=== PATIENT | female | born 1935 | race Caucasian/White ===

== ENCOUNTER 2022-04-20 03:23 | Inpatient (IN) | payer MEDICARE, OTHER ==
[~2022-04-20] VITALS: Ht 165.1 cm; Wt 65.7 kg
[~2022-04-20 03:23] MED LIST: ACET-3207 PO; APIX2.5T PO; ATOR40TA28 PO; CEFX2I IV; CHOL25TA4 PO; DOCU-385 PO; MAGN-169 PO; MAGN400T7 PO; MELA5TAB40 PO; OS500 PO; OXYC1TAB6 PO; PANT-31 PO; RISP0.5T39 PO; SENN8.6T20 PO; TRAZ-184 PO
[2022-04-20] MEDS ORDERED: 0.9% SODIUM CHLORIDE 10 ML SYRINGE IVP PRN (03:30)
[2022-04-20] MEDS ORDERED: ACETAMINOPHEN 1000 MG/ISO-OSM 100 ML IV ONE (03:45)
[2022-04-20] MEDS ORDERED: SODIUM CHLORIDE 0.9% 2,450 ML IV ONE (03:45)
[2022-04-20 03:55] LABS: COVID AG,FIA SOURCE NASAL SWAB
[2022-04-20 03:58] LABS: BASOPHILS % (AUTO) 0.3 % (0.0-2.0); EOSINOPHILS % (AUTO) 0.1 % (1.0-6.0); HEMATOCRIT 37.7 % (36-46); HEMOGLOBIN 12.2 g/dL (12.0-16.0); LYMPHOCYTES # (AUTO) 0.2 K/uL (1.0-4.8); LYMPHOCYTES % (AUTO) 1.5 % (22.0-44.0); MEAN CORPUSCULAR HEMOGLOBIN 26.8 pg (26.0-34.0); MEAN CORPUSCULAR HGB CONC 32.3 G/dL (31.0-37.0); MEAN CORPUSCULAR VOLUME 83 fL (80-100); MONOCYTES % (AUTO) 0.2 % (2.0-9.0); NEUTROPHILS # (AUTO) 13.1 K/uL (1.8-7.7); PLATELET COUNT (AUTO) 363 K/uL (150-450); RED BLOOD CELL COUNT(AUTO) 4.54 MIL/uL (4.00-5.20); RED CELL DISTRIBUTION WIDTH 15.9 % (11.5-14.5)
[2022-04-20 04:00] LABS: APPEARANCE,URINE TURBID (CLEAR); BILIRUBIN,URINE NEGATIVE (NEGATIVE); GLUCOSE, URINE (UA) NEGATIVE (NEGATIVE); KETONES,URINE NEGATIVE (NEGATIVE); LEUKOCYTE ESTERASE ,URINE LARGE (NEGATIVE); NITRATE,URINE NEGATIVE (NEGATIVE); OCCULT BLOOD,URINE LARGE (NEGATIVE); PROTEIN,URINE 300-600,SEE CONFIRM mg/dL (NEGATIVE); SPECIFIC GRAVITIY, URINE 1.009 (1.003-1.030); UROBILINOGEN,URINE <=1.0 mg/dL (<=1.0)
[2022-04-20 04:09] LABS: ANION GAP 10 mmol/L (8-16); CALCIUM, TOTAL 9.7 mg/dL (8.8-10.5); CARBON DIOXIDE 27 mmol/L (22-29); CHLORIDE 102 mmol/L (98-107); CREATININE 0.97 mg/dL (0.60-1.30); GLUCOSE,RANDOM 106 mg/dL (70-110); POTASSIUM 3.8 mmol/L (3.5-5.1); SODIUM SERUM 139 mmol/L (136-145); UREA NITROGEN, BLOOD 34 mg/dL (7-18)
[2022-04-20 04:10] LABS: GLOMERULAR FILTR. RATE CALC 55 mL/min (>60)
[2022-04-20 04:16] LABS: ALANINE AMINOTRANSFERASE 15 U/L (12-78); ALKALINE PHOSPHATASE 184 U/L (46-116); ASPARTATE AMINOTRANSFERASE 25 U/L (15-37); CREATINE KINASE, TOTAL ONLY 35 U/L (26-192)
[2022-04-20 04:17] LABS: INFLUENZA TYPE A NEGATIVE FOR TYPE A (NEGATIVE); INFLUENZA TYPE B NEGATIVE FOR TYPE B (NEGATIVE)
[2022-04-20 04:19] LABS: D-DIMER 5.03 mg/L FEU (0.00-0.50); INR 1.1 (0.9-1.1); PROTHROMBIN TIME 12.1 SEC (9.4-11.6)
[2022-04-20 04:25] LABS: SULFOSALICYLIC ACID,URINE 3+ (Negative)
[2022-04-20 04:26] LABS: BACTERIA,URINE Many /HPF (None Seen); RBC,URINE 26-50 /HPF (0-2); WBC,URINE 51-100 /HPF (0-5)
[2022-04-20 04:27] LABS: AMORPHOUS SEDIMENT,UR Moderate /LPF (None Seen); SQUAMOUS EPITHELIAL CELL,UR Moderate /LPF (None Seen)
[2022-04-20] MEDS ORDERED: AZITHROMYCIN 500 MG/NS 250 ML IV ONE (04:30)
[2022-04-20] MEDS ORDERED: CefTRIAXone 1 GM/DEXTROSE 50 ML IV ONE (04:30)
[2022-04-20 04:31] LABS: B-TYPE NATRIURETIC PEPTIDE 236 pg/mL (0-100)
[2022-04-20 04:34] LABS: NEUTROPHILS % (AUTO) 97.9 % (40.0-70.0)
[2022-04-20] MEDS ORDERED: ONDANSETRON HCL 4 MG/2 ML VIAL IVP PRN (04:45)
[2022-04-20] MEDS ORDERED: SODIUM CHLORIDE 0.9% 100 ML ONE ×2 (05:22→13:28)
[2022-04-20] MEDS: RINGERS SOLUTION,LACTATED 1,000 ML IV SCH ×2 (05:22→18:47)
[2022-04-20] MEDS ORDERED: IOHEXOL 350 MG/ML 100 ML VIAL ONE ×2 (05:22→13:28)
[2022-04-20] MEDS ORDERED: NOREPINEPHRINE 8 MG/D5%-WATER 250 ML IV PRN ×2 (05:30→05:45)
[2022-04-20] MEDS ORDERED: POTASSIUM CHLORIDE 10% 40 MEQ/30 ML LIQUID UDCUP PO ONE (05:45)
[2022-04-20] MEDS ORDERED: DIGOXIN 250 MCG/ML 2 ML AMP IVP ONE (05:45)
[2022-04-20 06:06] LABS: ABG HCO3 19.6 mmol/L (22.0-26.0); ABG PCO2 36 mmHg (35-45); ABG PH 7.342 (7.35-7.450); PO2, ARTERIAL BG 258.6 mmHg (71.0-79.0); SITE, BLOOD GAS LFT RADIAL; SOURCE, BLOOD GAS ARTERIAL
[2022-04-20 06:07] LABS: ABG BASE EXCESS -6.6 mmol/L (-2.0-3.0); ABG CARBOXYHEMOGLOBIN 0.1 % (0.0-1.5); ABG METHEMOGLOBIN 0.3 % (0.0-1.5); ABG OXYGEN CONTENT 15.3 mL/dL (15.0-23.0); ABG OXYGEN SATURATION 99.6 % (95.0-98.0); ABG TOTAL HEMOGLOBIN 10.5 G/dL (12.0-18.0)
[2022-04-20 06:08] LABS: ABG A-A DIFF O2 416.3 mmHg (10-20.0); O2 DEVICE,BLOOD GAS SIMPLE MASK (ROOM AIR)
[2022-04-20 06:09] LABS: ABG OXYHEMOGLOBIN 99.2 % (94.0-100.0)
[2022-04-20] MEDS ORDERED: AMIODARONE HCL 360 MG in DEXTROSE 5%-WATER 242.8 ML IV ONE (07:30)
[2022-04-20] MEDS ORDERED: HEPARIN SODIUM,PORCINE 5,000 UNITS/ML VIAL IVP ONE (07:30)
[2022-04-20] MEDS: POTASSIUM CHL 10 MEQ/WATER 50 ML IV SCH ×2 (07:30→08:30)
[2022-04-20] MEDS ORDERED: AMIODARONE HCL 150 MG in DEXTROSE 5%-WATER 97 ML IV ONE (07:30)
[2022-04-20] MEDS ORDERED: HEPARIN SODIUM,PORCINE 5,000 UNITS/ML VIAL SQ SCH (08:00)
[2022-04-20] MEDS ORDERED: DEXTROSE 5%-WATER 100 ML IV ONE (08:09)
[2022-04-20] MEDS ORDERED: AMIODARONE HCL 50 MG/ML 3 ML VIAL ONE (08:10)
[2022-04-20] MEDS: HEPARIN SODIUM 25000 UNITS/D5W 250 ML IV PRN (09:08)
[2022-04-20] MEDS ORDERED: ACET-2247 PO (11:06)
[2022-04-20] MEDS ORDERED: AMIODARONE HCL 540 MG in DEXTROSE 5%-WATER 239.2 ML IV ONE (13:30)
[2022-04-20] MEDS: ACETAMINOPHEN 325 MG TABLET PO PRN (16:18)
[2022-04-20] MEDS: PHENYLEPHRINE 200 MG/D5%-WATER 250 ML IV PRN (21:46)
[2022-04-21] MEDS ORDERED: CefTRIAXone 1 GM/DEXTROSE 50 ML IV SCH (05:00)
[2022-04-21 05:40] LABS: HEMATOCRIT 35.9 % (36-46); HEMOGLOBIN 11.4 g/dL (12.0-16.0); MEAN CORPUSCULAR HEMOGLOBIN 26.3 pg (26.0-34.0); MEAN CORPUSCULAR HGB CONC 31.8 G/dL (31.0-37.0); MEAN CORPUSCULAR VOLUME 83 fL (80-100); PLATELET COUNT (AUTO) 309 K/uL (150-450); RED BLOOD CELL COUNT(AUTO) 4.33 MIL/uL (4.00-5.20); RED CELL DISTRIBUTION WIDTH 16.5 % (11.5-14.5)
[2022-04-21 05:58] LABS: CALCIUM, TOTAL 8.9 mg/dL (8.8-10.5); CREATININE 0.98 mg/dL (0.60-1.30); MAGNESIUM 1.7 mg/dL (1.80-2.40); POTASSIUM 3.8 mmol/L (3.5-5.1)
[2022-04-21] MEDS ORDERED: *CLINICAL-CEFEPIME DOSING CLINICAL ONE (06:15)
[2022-04-21 06:24] LABS: BAND NEUTROPHILS % (MANUAL) 20 % (0-5); EOSINOPHILS % (MANUAL) 1 % (1-6); LYMPHOCYTES % (MANUAL) 2 % (22-44); METAMYELOCYTES % 3 % (0-0); MONOCYTES % (MANUAL) 5 % (2-9); SEGMENTED NEUTROPHILS % 69 % (40-70)
[2022-04-21] MEDS ORDERED: VASOPRESSIN 40 UNITS in DEXTROSE 5%-WATER 98 ML IV PRN (06:30)
[2022-04-21] MEDS: HEPARIN SODIUM,PORCINE 5,000 UNITS/ML VIAL IVP PRN (06:34)
[2022-04-21] MEDS: CEFEPIME HCL 2 GM in DEXTROSE 5%-WATER 50 ML IV SCH (06:46)
[2022-04-21 07:39] LABS: LACTIC ACID 4.7 mmol/L (0.4-2.0)
[2022-04-21] MEDS: RINGERS SOLUTION,LACTATED 1,000 ML IV SCH ×2 (07:57→20:55)
[2022-04-21] MEDS: AMIODARONE HCL 750 MG in DEXTROSE 5%-WATER 485 ML IV SCH (08:07)
[2022-04-21] MEDS: AZITHROMYCIN 500 MG/NS 250 ML IV SCH (08:28)
[2022-04-21 11:57] LABS: GLUCOSE,POINT OF CARE 93 MG/DL (70-110)
[2022-04-21] MEDS ORDERED: SODIUM CHLORIDE 0.9% 100 ML ONE (12:17)
[2022-04-21] MEDS ORDERED: IOHEXOL 350 MG/ML 100 ML VIAL ONE (12:17)
[2022-04-22] VITALS: BP 157/67
[2022-04-22 04:00] VITALS: BP 101/75
[2022-04-22 05:11] LABS: BASOPHILS % (AUTO) 1.1 % (0.0-2.0); EOSINOPHILS % (AUTO) 1.7 % (1.0-6.0); HEMATOCRIT 35.8 % (36-46); HEMOGLOBIN 11.7 g/dL (12.0-16.0); LYMPHOCYTES # (AUTO) 0.7 K/uL (1.0-4.8); LYMPHOCYTES % (AUTO) 2.4 % (22.0-44.0); MEAN CORPUSCULAR HEMOGLOBIN 26.8 pg (26.0-34.0); MEAN CORPUSCULAR HGB CONC 32.8 G/dL (31.0-37.0); MEAN CORPUSCULAR VOLUME 82 fL (80-100); MONOCYTES # (AUTO) 1.1 K/uL (0.1-1.0); MONOCYTES % (AUTO) 3.7 % (2.0-9.0); NEUTROPHILS # (AUTO) 26.2 K/uL (1.8-7.7); PLATELET COUNT (AUTO) 296 K/uL (150-450); RED BLOOD CELL COUNT(AUTO) 4.38 MIL/uL (4.00-5.20); RED CELL DISTRIBUTION WIDTH 16.5 % (11.5-14.5)
[2022-04-22 05:19] LABS: NEUTROPHILS % (AUTO) 91.1 % (40.0-70.0)
[2022-04-22 05:33] LABS: ALBUMIN 2.2 g/dL (3.4-5.0); BILIRUBIN,TOTAL 0.5 mg/dL (0.1-1.0); CALCIUM, TOTAL 9.2 mg/dL (8.8-10.5); CREATININE 0.9 mg/dL (0.60-1.30); MAGNESIUM 1.8 mg/dL (1.80-2.40); TOTAL PROTEIN, SERUM 6.1 g/dL (6.4-8.2)
[2022-04-22] MEDS ORDERED: SODIUM CHLORIDE 0.9% 250 ML IV ONE (06:12)
[2022-04-22] MEDS: HEPARIN SODIUM,PORCINE 5,000 UNITS/ML VIAL IVP PRN ×2 (06:17→20:40)
[2022-04-22] MEDS: CEFEPIME HCL 2 GM in DEXTROSE 5%-WATER 50 ML IV SCH (06:17)
[2022-04-22] MEDS: AMIODARONE HCL 750 MG in DEXTROSE 5%-WATER 485 ML IV SCH (07:30)
[2022-04-22] MEDS: AZITHROMYCIN 500 MG/NS 250 ML IV SCH (07:54)
[2022-04-22 08:00] VITALS: BP 107/64
[2022-04-22] MEDS: AMIODARONE HCL 200 MG TABLET PO SCH ×3 (09:00→21:38)
[2022-04-22] MEDS ORDERED: AMIODARONE HCL 200 MG TABLET PO SCH (09:00)
[2022-04-22] MEDS: HEPARIN SODIUM 25000 UNITS/D5W 250 ML IV PRN (09:06)
[2022-04-22] MEDS: RINGERS SOLUTION,LACTATED 1,000 ML IV SCH (10:26)
[2022-04-22 12:00] VITALS: BP 115/70
[2022-04-22] MEDS: PHENYLEPHRINE 200 MG/D5%-WATER 250 ML IV PRN (12:16)
[2022-04-22 16:00] VITALS: BP 117/81
[2022-04-22] MEDS: CeFAZolin 2 GM/DEXTROSE 50 ML IV SCH (17:56)
[2022-04-22 20:00] VITALS: BP 124/60
[2022-04-23] VITALS: BP 128/66
[2022-04-23] MEDS: RINGERS SOLUTION,LACTATED 1,000 ML IV SCH ×2 (00:06→12:14)
[2022-04-23] MEDS: PHENYLEPHRINE 200 MG/D5%-WATER 250 ML IV PRN (03:28)
[2022-04-23 04:00] VITALS: BP 108/67
[2022-04-23] MEDS: CeFAZolin 2 GM/DEXTROSE 50 ML IV SCH ×2 (05:27→17:24)
[2022-04-23 05:49] LABS: BASOPHILS % (AUTO) 0.4 % (0.0-2.0); EOSINOPHILS % (AUTO) 0.7 % (1.0-6.0); HEMATOCRIT 34.4 % (36-46); HEMOGLOBIN 11.3 g/dL (12.0-16.0); LYMPHOCYTES # (AUTO) 0.8 K/uL (1.0-4.8); LYMPHOCYTES % (AUTO) 3.3 % (22.0-44.0); MEAN CORPUSCULAR HEMOGLOBIN 26.7 pg (26.0-34.0); MEAN CORPUSCULAR VOLUME 81 fL (80-100); MONOCYTES # (AUTO) 0.8 K/uL (0.1-1.0); MONOCYTES % (AUTO) 3.2 % (2.0-9.0); NEUTROPHILS # (AUTO) 22.5 K/uL (1.8-7.7); PLATELET COUNT (AUTO) 342 K/uL (150-450); RED BLOOD CELL COUNT(AUTO) 4.24 MIL/uL (4.00-5.20); RED CELL DISTRIBUTION WIDTH 16.4 % (11.5-14.5)
[2022-04-23 05:52] LABS: NEUTROPHILS % (AUTO) 92.4 % (40.0-70.0)
[2022-04-23 06:04] LABS: ALANINE AMINOTRANSFERASE 32 U/L (12-78); ALBUMIN 2.1 g/dL (3.4-5.0); ALKALINE PHOSPHATASE 154 U/L (46-116); ANION GAP 7 mmol/L (8-16); ASPARTATE AMINOTRANSFERASE 48 U/L (15-37); BILIRUBIN,TOTAL 0.5 mg/dL (0.1-1.0); C-REACTIVE PROTEIN QUANT 14.03 mg/dL (0.00-0.30); CARBON DIOXIDE 25 mmol/L (22-29); CHLORIDE 100 mmol/L (98-107); CREATININE 0.84 mg/dL (0.60-1.30); GLUCOSE,RANDOM 90 mg/dL (70-110); POTASSIUM 3.5 mmol/L (3.5-5.1); SODIUM SERUM 132 mmol/L (136-145); TOTAL PROTEIN, SERUM 5.9 g/dL (6.4-8.2); UREA NITROGEN, BLOOD 26 mg/dL (7-18)
[2022-04-23 06:12] LABS: CALCIUM, TOTAL 8.7 mg/dL (8.8-10.5)
[2022-04-23 06:13] LABS: GLOMERULAR FILTR. RATE CALC > 60 mL/min (>60)
[2022-04-23 08:00] VITALS: BP 136/66
[2022-04-23] MEDS: ETHYL ALCOHOL 62% ANTISEPTIC NASAL SANITIZER 0.6 ML AMPUL NASAL SCH ×2 (09:16→20:05)
[2022-04-23] MEDS: AMIODARONE HCL 200 MG TABLET PO SCH ×3 (09:16→20:05)
[2022-04-23 12:00] VITALS: BP 120/78
[2022-04-23] MEDS: HEPARIN SODIUM 25000 UNITS/D5W 250 ML IV PRN (12:14)
[2022-04-23] MEDS: HEPARIN SODIUM,PORCINE 5,000 UNITS/ML VIAL IVP PRN (14:14)
[2022-04-23 16:00] VITALS: BP 112/62
[2022-04-23 20:00] VITALS: BP 121/61
[2022-04-24] VITALS (8 sets, daily range): BP systolic 101–123; BP diastolic 48–73
[2022-04-24] MEDS: PHENYLEPHRINE 200 MG/D5%-WATER 250 ML IV PRN (00:52)
[2022-04-24] MEDS ORDERED: SODIUM CHLORIDE 0.9% 250 ML IV ONE (01:58)
[2022-04-24] MEDS: RINGERS SOLUTION,LACTATED 1,000 ML IV SCH ×2 (02:01→17:53)
[2022-04-24 05:10] LABS: BASOPHILS % (AUTO) 0.1 % (0.0-2.0); EOSINOPHILS % (AUTO) 0.8 % (1.0-6.0); HEMATOCRIT 32.5 % (36-46); HEMOGLOBIN 10.7 g/dL (12.0-16.0); LYMPHOCYTES # (AUTO) 0.7 K/uL (1.0-4.8); MEAN CORPUSCULAR HEMOGLOBIN 26.9 pg (26.0-34.0); MEAN CORPUSCULAR HGB CONC 32.9 G/dL (31.0-37.0); MEAN CORPUSCULAR VOLUME 82 fL (80-100); MONOCYTES # (AUTO) 0.9 K/uL (0.1-1.0); MONOCYTES % (AUTO) 5.5 % (2.0-9.0); NEUTROPHILS # (AUTO) 14.9 K/uL (1.8-7.7); PLATELET COUNT (AUTO) 255 K/uL (150-450); RED BLOOD CELL COUNT(AUTO) 3.98 MIL/uL (4.00-5.20); RED CELL DISTRIBUTION WIDTH 16.8 % (11.5-14.5)
[2022-04-24 05:22] LABS: NEUTROPHILS % (AUTO) 89.6 % (40.0-70.0)
[2022-04-24 05:32] LABS: ALANINE AMINOTRANSFERASE 42 U/L (12-78); ALKALINE PHOSPHATASE 179 U/L (46-116); ANION GAP 9 mmol/L (8-16); ASPARTATE AMINOTRANSFERASE 54 U/L (15-37); BILIRUBIN,TOTAL 0.3 mg/dL (0.1-1.0); C-REACTIVE PROTEIN QUANT 6.27 mg/dL (0.00-0.30); CALCIUM, TOTAL 8.6 mg/dL (8.8-10.5); CARBON DIOXIDE 25 mmol/L (22-29); CHLORIDE 103 mmol/L (98-107); CREATININE 0.76 mg/dL (0.60-1.30); GLUCOSE,RANDOM 117 mg/dL (70-110); POTASSIUM 3.5 mmol/L (3.5-5.1); SODIUM SERUM 137 mmol/L (136-145); TOTAL PROTEIN, SERUM 5.8 g/dL (6.4-8.2); UREA NITROGEN, BLOOD 21 mg/dL (7-18)
[2022-04-24 05:33] LABS: GLOMERULAR FILTR. RATE CALC > 60 mL/min (>60)
[2022-04-24] MEDS: HEPARIN SODIUM,PORCINE 5,000 UNITS/ML VIAL IVP PRN (06:13)
[2022-04-24] MEDS: CeFAZolin 2 GM/DEXTROSE 50 ML IV SCH ×2 (06:18→17:53)
[2022-04-24] MEDS: ETHYL ALCOHOL 62% ANTISEPTIC NASAL SANITIZER 0.6 ML AMPUL NASAL SCH ×2 (08:27→20:04)
[2022-04-24] MEDS: AMIODARONE HCL 200 MG TABLET PO SCH ×3 (08:27→20:04)
[2022-04-24 10:53] LABS: PATHOLOGY REVIEW, DIFF YES
[2022-04-24] MEDS: HEPARIN SODIUM 25000 UNITS/D5W 250 ML IV PRN (12:26)
[2022-04-24] MEDS: ACETAMINOPHEN 325 MG TABLET PO PRN (16:32)
[2022-04-25] VITALS (7 sets, daily range): BP systolic 101–130; BP diastolic 60–73
[2022-04-25] MEDS ORDERED: SODIUM CHLORIDE 0.9% 250 ML IV ONE (03:53)
[2022-04-25] MEDS: CeFAZolin 2 GM/DEXTROSE 50 ML IV SCH ×2 (05:39→18:55)
[2022-04-25 06:25] LABS: BASOPHILS % (AUTO) 0.3 % (0.0-2.0); EOSINOPHILS % (AUTO) 1.3 % (1.0-6.0); HEMATOCRIT 30.1 % (36-46); HEMOGLOBIN 9.9 g/dL (12.0-16.0); LYMPHOCYTES # (AUTO) 0.4 K/uL (1.0-4.8); LYMPHOCYTES % (AUTO) 3.8 % (22.0-44.0); MEAN CORPUSCULAR HEMOGLOBIN 26.8 pg (26.0-34.0); MEAN CORPUSCULAR HGB CONC 32.7 G/dL (31.0-37.0); MEAN CORPUSCULAR VOLUME 82 fL (80-100); MONOCYTES # (AUTO) 0.5 K/uL (0.1-1.0); MONOCYTES % (AUTO) 4.5 % (2.0-9.0); NEUTROPHILS # (AUTO) 10.6 K/uL (1.8-7.7); PLATELET COUNT (AUTO) 199 K/uL (150-450); RED BLOOD CELL COUNT(AUTO) 3.68 MIL/uL (4.00-5.20); RED CELL DISTRIBUTION WIDTH 16.3 % (11.5-14.5)
[2022-04-25 06:34] LABS: NEUTROPHILS % (AUTO) 90.1 % (40.0-70.0)
[2022-04-25 06:37] LABS: ANION GAP 1 mmol/L (8-16); CALCIUM, TOTAL 8.6 mg/dL (8.8-10.5); CARBON DIOXIDE 30 mmol/L (22-29); CHLORIDE 104 mmol/L (98-107); CREATININE 0.59 mg/dL (0.60-1.30); GLUCOSE,RANDOM 109 mg/dL (70-110); POTASSIUM 3.5 mmol/L (3.5-5.1); SODIUM SERUM 135 mmol/L (136-145); UREA NITROGEN, BLOOD 19 mg/dL (7-18)
[2022-04-25 06:56] LABS: GLOMERULAR FILTR. RATE CALC > 60 mL/min (>60)
[2022-04-25] MEDS: ETHYL ALCOHOL 62% ANTISEPTIC NASAL SANITIZER 0.6 ML AMPUL NASAL SCH ×2 (10:04→20:13)
[2022-04-25] MEDS: AMIODARONE HCL 200 MG TABLET PO SCH ×2 (10:04→20:13)
[2022-04-25] MEDS: HEPARIN SODIUM 25000 UNITS/D5W 250 ML IV PRN (13:18)
[2022-04-26 04:22] VITALS: BP 113/63
[2022-04-26] MEDS: CeFAZolin 2 GM/DEXTROSE 50 ML IV SCH (04:59)
[2022-04-26] MEDS ORDERED: SODIUM CHLORIDE 0.9% 250 ML IV ONE (05:00)
[2022-04-26 07:48] VITALS: BP 117/66
[2022-04-26] MEDS: ETHYL ALCOHOL 62% ANTISEPTIC NASAL SANITIZER 0.6 ML AMPUL NASAL SCH ×2 (09:38→22:40)
[2022-04-26] MEDS: AMIODARONE HCL 200 MG TABLET PO SCH ×2 (09:38→22:30)
[2022-04-26] MEDS: HEPARIN SODIUM,PORCINE 5,000 UNITS/ML VIAL IVP PRN (09:39)
[2022-04-26] MEDS: HEPARIN SODIUM 25000 UNITS/D5W 250 ML IV PRN (09:44)
[2022-04-26 11:22] VITALS: BP 106/55
[2022-04-26] MEDS ORDERED: CeFAZolin 2 GM/DEXTROSE 50 ML IV SCH (13:00)
[2022-04-26 15:23] VITALS: BP 107/67
[2022-04-26 20:16] VITALS: BP 104/51
[2022-04-26] MEDS: CefTRIAXone 1 GM/DEXTROSE 50 ML IV SCH (22:40)
[2022-04-27 00:34] VITALS: BP 109/64
[2022-04-27 05:22] VITALS: BP 119/53
[2022-04-27 06:34] LABS: BASOPHILS % (AUTO) 0.4 % (0.0-2.0); EOSINOPHILS % (AUTO) 0.9 % (1.0-6.0); HEMATOCRIT 26.3 % (36-46); HEMOGLOBIN 8.4 g/dL (12.0-16.0); LYMPHOCYTES # (AUTO) 0.4 K/uL (1.0-4.8); LYMPHOCYTES % (AUTO) 3.9 % (22.0-44.0); MEAN CORPUSCULAR HEMOGLOBIN 26.8 pg (26.0-34.0); MEAN CORPUSCULAR HGB CONC 31.9 G/dL (31.0-37.0); MEAN CORPUSCULAR VOLUME 84 fL (80-100); MONOCYTES # (AUTO) 0.7 K/uL (0.1-1.0); MONOCYTES % (AUTO) 7.4 % (2.0-9.0); NEUTROPHILS # (AUTO) 8.5 K/uL (1.8-7.7); PLATELET COUNT (AUTO) 193 K/uL (150-450); RED BLOOD CELL COUNT(AUTO) 3.13 MIL/uL (4.00-5.20); RED CELL DISTRIBUTION WIDTH 16.9 % (11.5-14.5)
[2022-04-27 06:56] LABS: NEUTROPHILS % (AUTO) 87.4 % (40.0-70.0)
[2022-04-27 07:04] LABS: ALANINE AMINOTRANSFERASE 8 U/L (12-78); ALBUMIN 1.7 g/dL (3.4-5.0); ALKALINE PHOSPHATASE 113 U/L (46-116); ANION GAP 4 mmol/L (8-16); ASPARTATE AMINOTRANSFERASE 19 U/L (15-37); BILIRUBIN,TOTAL 0.1 mg/dL (0.1-1.0); CALCIUM, TOTAL 7.6 mg/dL (8.8-10.5); CARBON DIOXIDE 29 mmol/L (22-29); CHLORIDE 111 mmol/L (98-107); CREATININE 0.43 mg/dL (0.60-1.30); GLUCOSE,RANDOM 100 mg/dL (70-110); POTASSIUM 3.8 mmol/L (3.5-5.1); SODIUM SERUM 144 mmol/L (136-145); TOTAL PROTEIN, SERUM 4.7 g/dL (6.4-8.2); UREA NITROGEN, BLOOD 22 mg/dL (7-18)
[2022-04-27 07:07] LABS: GLOMERULAR FILTR. RATE CALC > 60 mL/min (>60)
[2022-04-27 07:46] VITALS: BP 119/56
[2022-04-27] MEDS: ETHYL ALCOHOL 62% ANTISEPTIC NASAL SANITIZER 0.6 ML AMPUL NASAL SCH ×2 (10:18→22:45)
[2022-04-27] MEDS: AMIODARONE HCL 200 MG TABLET PO SCH ×2 (10:18→22:45)
[2022-04-27] MEDS: HEPARIN SODIUM,PORCINE 5,000 UNITS/ML VIAL IVP PRN (10:26)
[2022-04-27] MEDS: HEPARIN SODIUM 25000 UNITS/D5W 250 ML IV PRN (10:28)
[2022-04-27 10:52] VITALS: BP 127/69
[2022-04-27 15:06] VITALS: BP 137/67
[2022-04-27 20:35] VITALS: BP 126/49
[2022-04-27] MEDS: APIXABAN 5 MG TABLET PO SCH (22:45)
[2022-04-27] MEDS: CefTRIAXone 1 GM/DEXTROSE 50 ML IV SCH (22:45)
[2022-04-28] VITALS (7 sets, daily range): BP systolic 113–150; BP diastolic 58–81
[2022-04-28] MEDS: APIXABAN 5 MG TABLET PO SCH ×2 (10:06→20:19)
[2022-04-28] MEDS: ETHYL ALCOHOL 62% ANTISEPTIC NASAL SANITIZER 0.6 ML AMPUL NASAL SCH ×2 (10:06→20:19)
[2022-04-28] MEDS: AMIODARONE HCL 200 MG TABLET PO SCH ×2 (10:06→20:19)
[2022-04-28] MEDS: CefTRIAXone 1 GM/DEXTROSE 50 ML IV SCH (20:20)
[2022-04-29 03:58] VITALS: BP 129/64
[2022-04-29] MEDS: APIXABAN 5 MG TABLET PO SCH (08:47)
[2022-04-29] MEDS: AMIODARONE HCL 200 MG TABLET PO SCH (08:47)
[2022-04-29] MEDS: ETHYL ALCOHOL 62% ANTISEPTIC NASAL SANITIZER 0.6 ML AMPUL NASAL SCH (08:47)
[2022-04-29 08:57] VITALS: BP 114/65
[2022-04-29 11:47] VITALS: BP 136/76
[2022-04-29 15:53] VITALS: BP 108/63
[2022-04-29 16:11] LABS: COVID AG,FIA SOURCE NASAL SWAB
== END 2022-04-29 18:40 | disposition hospice, home (50) | DRG 871 ==
LOC: EMS 03:47 → ICU 04-21 22:33 → 5S 04-25 22:28
PROVIDERS: ADMIT Internal Medicine; ATTEND Internal Medicine
PROC: 06HY33Z Insertion of Infusion Device into Lower Vein, Percutaneous Approach (ICD-10-PCS; 2022-04-21)
PROC: B54BZZA Ultrasonography of Right Lower Extremity Veins, Guidance (ICD-10-PCS; 2022-04-21)
PROC: 5A0935A Assistance with Respiratory Ventilation, Less than 24 Consecutive Hours, High Flow/Velocity Cannula (ICD-10-PCS; principal; 2022-04-26)
DX: A41.50 Gram-negative sepsis, unspecified (principal); E43 Unspecified severe protein-calorie malnutrition; G92.9 Unspecified toxic encephalopathy; I21.A1 Myocardial infarction type 2; R65.21 Severe sepsis with septic shock; I48.20 Chronic atrial fibrillation, unspecified; N12 Tubulo-interstitial nephritis, not specified as acute or chronic; B96.20 Unspecified Escherichia coli [E. coli] as the cause of diseases classified elsewhere; F03.90 Unspecified dementia, unspecified severity, without behavioral disturbance, psychotic disturbance, mood disturbance, and anxiety; I11.0 Hypertensive heart disease with heart failure; I25.10 Atherosclerotic heart disease of native coronary artery without angina pectoris; I49.5 Sick sinus syndrome; I50.9 Heart failure, unspecified; R13.10 Dysphagia, unspecified; Z66 Do not resuscitate; E03.9 Hypothyroidism, unspecified; R62.7 Adult failure to thrive; Z20.822 Contact with and (suspected) exposure to COVID-19; C76.1 Malignant neoplasm of thorax; K21.9 Gastro-esophageal reflux disease without esophagitis; F41.9 Anxiety disorder, unspecified; Z96.642 Presence of left artificial hip joint; Z51.5 Encounter for palliative care; I25.2 Old myocardial infarction; Z78.1 Physical restraint status; Z79.01 Long term (current) use of anticoagulants; Z86.73 Personal history of transient ischemic attack (TIA), and cerebral infarction without residual deficits; Z91.81 History of falling; Z95.0 Presence of cardiac pacemaker; Z95.1 Presence of aortocoronary bypass graft; Z95.5 Presence of coronary angioplasty implant and graft; Z68.24 Body mass index [BMI] 24.0-24.9, adult
CPT/HCPCS: 36600; 51702; 70450; 71045; 71275; 74177; 76705; 80048; 80053; 81001; 81002; 82550; 82805; 82962; 83605; 83735; 83880; 84145; 84484; 85025; 85379; 85610; 85730; 86140; 87040; 87077; 87081; 87086; 87186; 87205; 87804; 93005; 93306; 93971; 99291; G0378; J0131; J0282; J0456; J0690; J0692; J0696; J1160; J1644; J2370; J3480; J7050; J7060; J7120; Q9967; 36415-L1; 36415-TC; U0003